=== PATIENT | male | born 1950 | race Caucasian/White ===

== ENCOUNTER → 2022-11-03 15:19 | Outpatient (CLI) | payer OTHER, SELFPAY ==
--- NOTE | 2022-11-03 15:21 | DI.US.S_ITS ---
PROCEDURE: US SCROTUM INDICATIONS: Spermatocele TECHNIQUE: Real-time scanning was performed of the scrotum and testicles, with image documentation. Color and pulse Doppler interrogation was performed of both testicles. COMPARISON: None. FINDINGS: Right: Testicle is normal in size at 5.2 x 2.4 x 2.9 cm, and homogenous in echotexture. Epididymis is normal in overall size and morphology. No hydrocele or varicoceles. Overlying scrotal skin is normal in thickness. Left: Testicle is normal in size at 3.0 x 2.1 x 3.8 cm, and homogeneous in echotexture. Epididymis is normal in overall size and morphology. Epididymal cyst versus spermatocele measuring up to 5.7 cm. No hydrocele or varicoceles. Overlying scrotal skin is normal in thickness. Doppler: Color and pulse Doppler demonstrate normal and symmetric arterial flow in both testicles. IMPRESSION: 1. Normal appearance of the testicles bilaterally. 2. Large epididymal cyst versus spermatocele involving the left epididymis measuring up to 5.7 cm. Dictated by: Earl HAGEN Interpreted: Carmelo Robertson MD on 11/03/2022 at 16:02 Transcribed by: MALCOM on 11/03/2022 at 16:03 Approved by: Carmelo Robertson M.D. on 11/03/2022 at 17:11
== END ==
PROVIDERS: PCP Internal Medicine; Referring Provider Internal Medicine; Visit Provider Internal Medicine
DX: N43.40 Spermatocele of epididymis, unspecified (principal)
CPT/HCPCS: 76870

== ENCOUNTER → 2022-12-02 10:46 | Outpatient (CLI) | payer OTHER, SELFPAY ==
[2022-12-02 11:33] LABS: COVID19 -Nasal RAPID Negative (Negative)
== END ==
PROVIDERS: PCP Internal Medicine; Visit Provider Specialist
DX: Z20.822 Contact with and (suspected) exposure to COVID-19 (principal)
CPT/HCPCS: 87635; C9803

== ENCOUNTER 2022-12-05 08:41 | Day surgery (SDC) | payer OTHER, SELFPAY ==
[2022-11-30 13:13] VITALS: BMI 22.0
--- NOTE | 2022-12-05 | PATH_ITS ---
[facility] Accession Number: [id number] No. of containers..01 Tissue . 01 Material submitted: . testis - LEFT MULTISEPTATED SPERMATOCELE . 01 Diagnosis: Left Multiseptated Spermatocele, Excision: Consistent with spermatocele. No evidence of neoplasm. MRV 12/08/2022 1307 Local . 01 Electronically signed: . Cuate Paredes MD, PhD, Pathologist NPI- [id number] . 01 Gross description: . The specimen is received in formalin labeled with the patient's name, , and left multiseptated spermatocele, and consists of an intact, translucent cystic structure measuring 6.1 x 5.8 x 1.7 cm. The external surface has a small amount of adherent yellow soft tissue, and the external surface is inked blue and is otherwise smooth. The cystic structure contains clear serous fluid. On the surface reveals a unilocular thin-walled cystic structure with the wall averaging less than 0.1 cm thick. The internal surface is smooth with no excrescences identified. Refrigerator Tester sections are submitted in cassettes A1-A3. ([id number]) /FRR 12/07/2022 0305 Local . 01 Pathologist provided ICD-10: N43.40 . 01 CPT . 246980 Specimen Comment: A courtesy copy of this report has been sent to [phone] Performed at: 01 [facility] [address] [place] [address] [id number] MD Milind Adams MD Phone: [phone]
[2022-12-05 09:05] VITALS: BP 162/77; PULSE 57; RESP 16; TEMP 36.2; O2SAT 100; BMI 22.3
[2022-12-05] MEDS: LACTATED RINGERS 1,000 ML 21 ML IV (09:21)
--- NOTE | 2022-12-05 09:46 | PM.PREOP ---
Pre-operative Note COVID-19 Criteria for continued procedure: Expected advancement of disease process, Possibility delay results in more complex future surgery or treatment, Increased loss of function, Continuing or worsening of significant or severe pain, Delay expected to result in less-positive ultimate med/surg outcome and Non-surgical alternatives not available or appropriate per current SOC Interval Note History & Physical reviewed/Exam performed by Physician: Yes Changes to H&P: No
[2022-12-05] MEDS: CEFAZOLIN 2 GM/100 ML PREMIX 100 ML IV (10:22)
[2022-12-05] MEDS: BUPIVACAINE 0.5% W/ EPI (PF) 30 ML VIAL INJ (10:47)
--- NOTE | 2022-12-05 10:49 | SUR.OPER ---
Supine on padded OR bed, head on pillow, right arm secured on padded arm board at <90 degrees abduction, left arm wrapped with gelpad and tucked against body, legs uncrossed, safety belt at thigh.
[2022-12-05] MEDS: NEOMYCIN/POLYMYXIN/BACITRA UD OINT 2 EACH TOP (11:09)
[2022-12-05] MEDS: BUPIVACAINE LIPOSOME 266 MG/20 ML VIAL INJ (11:37)
[2022-12-05 11:59] VITALS: BP 123/86; PULSE 55; RESP 16; TEMP 36.1; O2SAT 97
--- NOTE | 2022-12-05 12:05 | P.OP_ITS ---
Operative Date/Time/Diagnoses Date of procedure: 12/05/22 Time of procedure: 12:05 Pre-op diagnosis: Large left spermatocele Post-op diagnosis: same Procedure & Clinicians Procedure: 1. Left spermatocelectomy. 2. Left hydrocelectomy Same procedure as scheduled: No (Incidental finding of small left hydrocele- repaired.) Indications: 1. Large left spermatocele. Surgeon: Brittany Quiroga Click Yes if Unassisted: Yes Anesthesia Type: General Operative Notes Findings: 1. Multiloculated left spermatocele. 2. Small left hydrocele Closure Type: primary Specimen(s): other (Multiloculated spermatocele) Applied: other (#10F fenestrated Angel drain to bulb self suction.) Estimated Blood Loss (mL): 2 Blood products transfused: none Procedure in detail: The patient was positioned supine was administered general anesthesia. The lo wer abdomen, genitalia, and groin were then prepped and draped in sterile fashion. 0.25% Marcaine with epinephrine was then used to infiltrate the midline scrotal raphae and subcutaneous tissue. The needle-tip cautery pen was then used to divide the skin and subcutaneous tissue down to the level of the left tunica vaginalis. The left scrotal contents were then delivered from the incision an additional blunt dissection was used to clear surfaces and allow examination. The tunica vaginalis was opened in the vertical midline anteriorly, with finding of small amount of hydrocele fluid. Next, meticulous blunt, sharp, and cautery dissection was utilized to develop the appropriate planes to isolate the fluid-filled structures comprising the multiloculated spermatocele. Near the epididymal head a wide complex neck communicating with the epididymis was visualized. A hemostatic clamp was applied along base and the spermatocele was excised and submitted to pathology for routine gross and microscopic examination. A 3-0 Vicryl was then used to close the 1st layer beneath the hemostatic clamp with a running vertical mattress technique. The direction of closure was then reversed, and using a running over hand technique the working and the suture was returned to the starting point at which time it was tied to the free and to complete the closure. The testis and attached cord were then repositioned left hemiscrotum anatomically and this same 2-0 was used to tack the structure to the posterior and superior inner scrotal. Exparel was then used to infiltrate the left inferior lateral scrotal wall. A fenestrated 10 Lithuanian Angel drain was then brought through the anesthetized site from inside to outside. The drain was trimmed appropriate length and was positioned in the left hemiscrotum. The drain was secured at the level of the skin with 2-0 silk using a double-arm Rudi sandal technique in usual fashion. Additional Exparel was used to infiltrate the dartos fascia and the skin along the midline scrotal incision. The dartos fascia was then closed with a running vertical mattress of 2-0 Monocryl. The skin was reapproximated using a running horizontal mattress of 4- 0 Monocryl. The skin was cleaned and dried and fluff gauze were applied to the scrotum. The patient was then fitted with an athletic supporter. The patient was then awakened, transferred to [facility], then transported to recovery in stable condition. Complications: none Post-operative Condition: stable Disposition: PACU Plan for aftercare: Discharge home.
[2022-12-05 12:09] VITALS: BP 117/73; PULSE 63; RESP 16; O2SAT 98
[2022-12-05 12:11] VITALS: BP 133/72; PULSE 73; RESP 18; O2SAT 99
--- NOTE | 2022-12-05 12:14 | SUR.PHASEI ---
1214 gave report to Froylan Holliday RN
[2022-12-05 12:25] VITALS: BP 116/67; PULSE 60; RESP 18; TEMP 36.6; O2SAT 100
[2022-12-05 12:37] VITALS: BP 120/72; PULSE 50; RESP 12; TEMP 36.8; O2SAT 100
== END 2022-12-05 13:00 | disposition home or self-care (01) ==
PROVIDERS: PCP Internal Medicine; Referring Provider Specialist; Visit Provider Specialist
PROC: (CPT 55040; principal; 2022-12-05 10:00)
DX: N43.41 Spermatocele of epididymis, single (principal); N43.3 Hydrocele, unspecified
CPT/HCPCS: 55040; 82962; C9290; J0690; J2405; J2704; J3010

== ENCOUNTER → 2023-02-25 08:54 | Outpatient (CLI) | payer OTHER, SELFPAY ==
[2023-02-25 10:42] LABS: Alanine Aminotransferase 21 IU/L (<50); Albumin 4.1 g/dL (3.5-5.0); Albumin Globulin Ratio 1.6 (1.0-2.8); Alkaline Phosphatase 64 U/L (38-126); Aspartate Aminotransferase 21 IU/L (17-59); BUN Creatinine Ratio 28.4 (6-22); Bilirubin Total 0.5 mg/dL (0.2-1.3); Blood Urea Nitrogen 21 mg/dL (9-20); Calcium 9.1 mg/dL (8.4-10.2); Carbon Dioxide 28 mmol/L (22-32); Chloride 104 mmol/L (98-107); Cholesterol 181 mg/dL (140-199); Estimated Glomerular Filt Rate > 60 mL/min (>60); Globulin 2.6 g/dL (1.7-4.1); Glucose 94 mg/dL (80-110); HDL Cholesterol 69 mg/dL (40-60); HEMOLYSIS < 15 (0-50); LDL Cholesterol Calculated 99 mg/dL (<100); Potassium 4.2 mmol/L (3.4-5.1); Sodium 139 mmol/L (137-145); Total Protein 6.7 g/dL (6.3-8.2); Triglycerides 65 mg/dL (35-150)
== END ==
PROVIDERS: PCP Internal Medicine; Referring Provider Internal Medicine; Visit Provider Internal Medicine
DX: Z13.6 Encounter for screening for cardiovascular disorders (principal); Z13.1 Encounter for screening for diabetes mellitus; Z13.220 Encounter for screening for lipoid disorders
CPT/HCPCS: 36415; 80053; 80061

== ENCOUNTER → 2023-06-29 09:17 | Outpatient (CLI) | payer OTHER, SELFPAY ==
--- NOTE | 2023-06-29 | DI.MRI.S_ITS ---
PROCEDURE: MR SHOULDER LT WO CON INDICATIONS: IMPINGEMENT SYNDROME OF LEFT SHOULDER TECHNIQUE: Noncontrast oblique coronal T2 fast spin echo with fat saturation, oblique sagittal T1 spin echo and T2 fast spin echo with fat saturation, axial T1 spin echo and T2 fast spin echo with fat saturation through the shoulder. COMPARISON: [facility], CR, XR SHOULDER 2+ VIEWS LEFT, 02/28/2023, 10:49. FINDINGS: Image quality: Excellent. Rotator cuff: There is moderate supraspinatus and subscapularis tendinosis and mild infraspinatus tendinosis. No high-grade tendon tear. No rotator cuff muscle atrophy. Bones and bursae: No bone marrow contusions or fractures. Moderate acromioclavicular and glenohumeral joint degeneration. The acromion demonstrates conventional anatomy, without an os acromiale. There is a small subcoracoid bursal fluid suggesting mild bursitis. Capsule and soft tissues: There is diffuse degenerative tear of the glenoid labrum. The long head of the biceps tendon demonstrates normal location and morphology. The rotator interval appears normal, without fibrosis. The coracohumeral ligament is normal in thickness. IMPRESSION: 1. Moderate supraspinatus and subscapularis tendinosis and mild infraspinatus tendinosis. 2. Mild tendinosis of the long head of the biceps tendon. 3. Mild subcoracoid bursitis. 4. Moderate acromioclavicular and glenohumeral arthrosis. 5. Diffuse degenerative labral tear. Dictated by: Elba Mustafa M.D. on 06/29/2023 at 13:30 Approved by: Elba Mustafa M.D. on 06/29/2023 at 13:47
== END ==
PROVIDERS: PCP Internal Medicine; Referring Provider Orthopaedic Surgery; Visit Provider Orthopaedic Surgery
DX: S43.492A Other sprain of left shoulder joint, initial encounter (principal); M75.42 Impingement syndrome of left shoulder; M19.012 Primary osteoarthritis, left shoulder; M75.52 Bursitis of left shoulder
CPT/HCPCS: 73221

== ENCOUNTER → 2023-10-25 10:06 | Outpatient (CLI) | payer OTHER, SELFPAY ==
[2023-10-25 11:39] LABS: Prostate Specific Antigen 2.91 ng/mL (0.10-4.00)
== END ==
PROVIDERS: PCP Internal Medicine; Referring Provider Specialist; Visit Provider Specialist
DX: R97.20 Elevated prostate specific antigen [PSA] (principal)
CPT/HCPCS: 36415; 84153

== ENCOUNTER → 2024-11-25 10:01 | Outpatient (CLI) | payer OTHER, SELFPAY ==
[2024-11-25 12:14] LABS: Prostate Specific Antigen 3.46 ng/mL (0.10-4.00)
== END ==
PROVIDERS: PCP Internal Medicine; Referring Provider Urology; Visit Provider Urology
DX: N40.0 Benign prostatic hyperplasia without lower urinary tract symptoms (principal)
CPT/HCPCS: 36415; 84153

== ENCOUNTER → 2025-04-21 10:47 | Outpatient (CLI) | payer OTHER, SELFPAY ==
--- NOTE | 2025-04-21 12:00 | DI.RAD.S_ITS ---
PROCEDURE: XR CHEST 2V INDICATIONS: pneumonia TECHNIQUE: 2 views of the chest were acquired. COMPARISON: None. FINDINGS: Surgical changes and devices: None. Lungs and pleura: Moderate bibasilar parenchymal infiltrate and pulmonary airspace disease. Small bilateral pleural effusions may be present. The upper lung zones are clear. Mediastinum: Mediastinal contours are normal. Heart size is normal. Bones and chest wall: No suspicious bony abnormalities. Soft tissues appear unremarkable. IMPRESSION: Moderate bibasilar parenchymal infiltrate and pulmonary airspace disease and probable small bilateral pleural effusions. Dictated by: Jamal Cordova M.D. on 04/22/2025 at 2:50 Approved by: Jamal Cordova M.D. on 04/22/2025 at 2:51
[2025-04-21 12:07] LABS: Add Manual Diff / Slide Review NO; Basophils Absolute Auto 0 /uL (0-100); Basophils Percent Auto 0.2 % (0-2); Eosinophils Absolute Auto 1000 /uL (0-450); Eosinophils Percent Auto 10.3 % (2-4); Hematocrit 35.6 % (41-53); Hemoglobin 11.9 g/dL (13.5-17.5); Lymphocytes Absolute Auto 1100 /uL (1100-4500); Lymphocytes Percent Auto 11.4 % (25-40); Mean Corpuscular HGB Conc 33.4 % (30-36); Mean Corpuscular Hemoglobin 30.7 PG (26-34); Monocytes Absolute Auto 1000 /uL (0-900); Monocytes Percent Auto 10.5 % (3-14); Neutrophils Absolute Auto 6700 /uL (1500-7000); Neutrophils Percent Auto 67.6 % (50-75); Platelet Count 406 X10^3/uL (150-400); Red Blood Cell Count 3.87 X10^6/uL (4.5-5.9); Red Cell Distribution Width 13.7 % (11.6-14.8); White Blood Cell Count 9.8 X10^3/uL (4.5-11.0)
[2025-04-21 12:28] LABS: Alanine Aminotransferase 18 IU/L (<50); Alkaline Phosphatase 68 U/L (38-126); Aspartate Aminotransferase 22 IU/L (17-59); BUN Creatinine Ratio 26.8 (6-22); Bilirubin Total 0.5 mg/dL (0.2-1.3); Blood Urea Nitrogen 19 mg/dL (9-20); Calcium 8.4 mg/dL (8.4-10.2); Carbon Dioxide 25 mmol/L (22-32); Chloride 107 mmol/L (98-107); Estimated Glomerular Filt Rate > 60 mL/min (>60); Globulin 2.9 g/dL (1.7-4.1); Glucose 105 mg/dL (70-99); HEMOLYSIS < 15 (0-50); Potassium 4.4 mmol/L (3.4-5.1); Sodium 140 mmol/L (137-145); Total Protein 5.9 g/dL (6.3-8.2)
[2025-04-21 12:34] LABS: NT-proBNP (BNP-Adult 18+) 104 pg/mL (<450)
== END ==
PROVIDERS: PCP Internal Medicine; Referring Provider Internal Medicine; Visit Provider Internal Medicine
DX: J18.9 Pneumonia, unspecified organism (principal); I50.9 Heart failure, unspecified; I95.9 Hypotension, unspecified; D64.9 Anemia, unspecified
CPT/HCPCS: 36415; 71046; 80053; 83880; 85025

== ENCOUNTER → 2025-06-06 14:25 | Outpatient (CLI) | payer OTHER, SELFPAY ==
--- NOTE | 2025-06-06 14:27 | DI.RAD.S_ITS ---
PROCEDURE: XR CHEST 2V INDICATIONS: pneumonia TECHNIQUE: 2 views of the chest were acquired. COMPARISON: [facility], CR, XR CHEST 2V, 04/21/2025, 11:04. FINDINGS: Surgical changes and devices: None. Lungs and pleura: Compared to previous study, there is interval improvement in bilateral lower lung field aeration. Blunting of bilateral costophrenic angle is seen suggestive of trace bilateral pleural effusion versus thickening. Bibasilar small infiltrate/atelectasis are seen more prominent on the right side. No pneumothorax. Mild pulmonary vascular congestion is seen. Mediastinum: Mediastinal contours are normal. Heart size is normal. Bones and chest wall: No suspicious bony abnormalities. Soft tissues appear unremarkable. IMPRESSION: Interval improvement in bilateral lung aeration with small residual infiltrate/atelectasis at bilateral lung bases and trace bilateral pleural effusion versus thickening. No pneumothorax. Dictated by: Raymundo Gómez M.D. on 06/07/2025 at 23:52 Approved by: Raymundo Gómez M.D. on 06/07/2025 at 23:52
== END ==
PROVIDERS: PCP Internal Medicine; Referring Provider Internal Medicine; Visit Provider Internal Medicine
DX: J18.9 Pneumonia, unspecified organism (principal)
CPT/HCPCS: 71046